=== PATIENT | female | born 1955 | race Caucasian/White ===

== ENCOUNTER 2016-08-02 22:51 | Emergency (ER) | payer SELFPAY ==
[~2016-08-02] VITALS: Ht 134.6 cm; Wt 59.5 kg
[2016-08-02 23:06] VITALS: BP 170/98; PULSE 88; RESP 14; O2SAT 96
[2016-08-02] MEDS ORDERED: GOLI50PE SQ (23:13)
[2016-08-02] MEDS ORDERED: ALPR0.25 PO (23:13)
[2016-08-02] MEDS ORDERED: [UNRECOGNIZED DRUG - CODE] PO (23:13)
[2016-08-02] MEDS ORDERED: METH25VI9 IM (23:13)
[2016-08-03 00:37] VITALS: BP 155/81; PULSE 85; RESP 16; O2SAT 99
--- NOTE | 2016-08-03 01:06 | ED.REPORT ---
HPI-Sore Throat ONLY HPI/PE done August 03, 2016 ED Provider: Dr. Earl Briones D.O. A 61 year old female with a medical history including RA and uveitis on methotrexate presents to the ED with a sore throat onset yesterday. Associated symptoms include headache, generalized myalgias, abdominal pain, and diarrhea. The patient denies cough or other symptoms. Her daughter and grandson are also ill with similar symptoms and were diagnosed with strep throat today. Nursing Notes Stated Complaint: SORE THROAT,BODY ACHES,EAR ACHE Chief Complaint: General Complaint Nursing Notes Reviewed: Yes Allergies: Uncoded Allergies: DARVOCET (Allergy, Intermediate, facial swelling, 08/02/16) Scheduled PRN Alprazolam (Xanax) 0.25 Mg Tablet 0.25 MG PO TID PRN PRN For Anxiety Miscellaneous Medications Golimumab (Simponi) 50 Mg/0.5 Ml Pen.injctr 50 MG SQ Methotrexate Sodium (Methotrexate) 50 Mg/2 Ml Vial 25 MG IM Vitamin A Palmitate/Vitamin D2 (Vitamins A & D Tablet) 1 Each Tablet 1 EACH PO General Time Seen by MD: 01:06 Chief Complaint Sore throat Hx Obtained From: Patient Arrived By: Walk-in Onset Occurred: Yesterday Context of Onset: Exposure, strep Symptom Duration: Since onset Location: : Tonsil left: Tonsil right Quality: Painful Severity: Current: Moderate Severity: Maximum: Moderate Pertinent Negative: Relieved by nothing Context: Immunization Status General: Unknown Recent Healthcare: No recent doctor visit Past Medical History Past Medical History RA Uveitis on methotrexate MRSA Past Surgical History Nasal polypectomy Smoking History Unknown if Ever Smoker Social History Other Social History: Good social support Ambulatory Status Independent Review of Systems Constitutional: Denies: Fever Ears / Nose / Throat: Reports: Sore throat Respiratory: Denies: Non-productive cough, Shortness of breath GI: Reports: Abdominal pain, Diarrhea, Denies: Vomiting Neurologic: Reports: Headache Complete sys rev & neg: except as marked. Musculoskeletal: Reports: Myalgia (Generalized) Physical Exam Initial Vital Signs Vital Signs (First) Date Time Temp Pulse Resp B/P Pulse Ox O2 Delivery O2 Flow Rate FiO2 08/02/16 23:06 37.3 88 14 170/98 96 Room Air Head / Eyes: Atraumatic, Normocephalic Respiratory: Breath sounds normal, Clear to auscultation, No respiratory distress Cardiovascular: Regular rate & rhythm, Heart sounds normal Abdomen / GI: Soft, Non-tender Skin: Warm, Dry, No cyanosis Neurologic: Alert, Oriented, Nonfocal Psychiatric: Mood/affect normal, Behavior normal, Normal thought content General/Constitutional: Awake, Alert, No acute distress ENT: Airway patent, Tympanic membs NL, Ext aud canal NL Pharynx / Tonsils / Uvula: Positive: Pharyngeal erythema Neck: Supple, Full range of motion Interpretation & Diagnostics Lab Results Interpretation Result Diagram: 08/03/16 0125 08/03/16 0125 Test 08/03/16 00:47 08/03/16 01:25 Urine Color Yellow (YELLOW) Urine Appearance Clear (CLEAR,HAZY) Urine pH 6.0 (5.0-8.0) Urine Specific [place] 1.007 (1.003-1.035) Urine Protein Negativemg/dL (NEG,TRACE) Urine Glucose (UA) Negativemg/dL (NEGATIVE) Urine Ketones Negativemg/dL (NEGATIVE) Urine Occult Blood Negative (NEGATIVE) Urine Nitrite Negative (NEGATIVE) Urine Bilirubin Negative (NEGATIVE) Urine Urobilinogen Normalmg/dL (NORMAL) Urine Leukocyte Esterase Small (NEGATIVE) Urine RBC 0-2/hpf (0-2) Urine WBC 6-10/hpf (0-5) Urine Epithelial Cells Many/hpf (NONE-MOD) Urine Crystals None seen (NONE SEEN) Urine Bacteria None/hpf (NONE-FEW) Urine Hyaline Casts None/lpf (NONE) Urine Granular Casts None seen (NONE SEEN) Urine Waxy Casts None seen (NONE SEEN) Urine Red Blood Cell Casts None seen (NONE SEEN) Urine White Blood Cell Casts None seen (NONE SEEN) Urine Mucus None seen (None Seen) Urine Trichomonas None seen (NONE SEEN) Urine Yeast None (NONE SEEN) Urine Culture Reflexed Indicated White Blood Count 6.0th/mm3 (3.8-10.1) Red Blood Count 3.37mil/mm3 (3.90-5.20) Hemoglobin 11.6g/dL (12.0-15.6) Hematocrit 35.5% (35.0-46.0) Mean Corpuscular Volume 105.3fL (81-100) Mean Corpuscular Hemoglobin 34.4pg (27.0-35.0) Mean Corpuscular Hemoglobin Concent 32.7% (32.0-37.0) Red Cell Distribution Width 13.4% (12.3-15.4) Platelet Count 290bil/L (150-400) Neutrophils (%) (Auto) 49.5% (40-74) Lymphocytes (%) (Auto) 30.2% (14-46) Monocytes (%) (Auto) 17.4% (4-12) Eosinophils (%) (Auto) 1.7% (0-5) Basophils (%) (Auto) 1.0% (0-3) Sodium Level 137mEq/L (134-144) Potassium Level 3.4mEq/L (3.5-5.2) Chloride Level 97mEq/L (97-108) Carbon Dioxide Level 22mmol/L (18-29) Blood Urea Nitrogen 12mg/dL (6-24) Creatinine 0.62mg/dL (0.57-1.00) Estimat Glomerular Filtration Rate 141mL/min (>59) Glucose Level 126mg/dL (60-99) Calcium Level 9.6mg/dL (8.5-10.1) Total Bilirubin 0.2mg/dL (0.0-1.2) Aspartate Amino Transf (AST/SGOT) 30U/L (0-50) Alanine Aminotransferase (ALT/SGPT) 33U/L (0-32) Alkaline Phosphatase 70U/L (25-165) Total Protein 8.8g/dL (6.4-8.4) Albumin 5.1g/dL (3.4-5.0) Hold Hall Top Tube Received (Received) Re-Eval/Medical Decision Re-Evaluation/Progress : Time of Eval: 02:10 Patient Status: Condition improved Re-Evaluation/Progress Note: Discussed with patient lab results, diagnosis, and plan for discharge. Follow-up and return to the ER instructions given. Patient agrees with plan for care and all questions were addressed. Counseled Regarding: Diagnosis, Lab results, Need for follow-up, When/why to return to ED Discharge & Departure Shift Change Sign-Out Response to Therapy: Improved Primary Impression: Pharyngitis, acute Pharyngitis/tonsillitis etiology: streptococcus Qualified Code: J02.0 - Streptococcal pharyngitis Disposition: Home Discharge Condition All VS Reviewed: Yes Condition: Improved Patient Instructions: Pharyngitis (ED) Additional Instructions: Thank you for entrusting us with your care. Your lab work was reassuring for any serious illness. Please take Amoxicillin three times daily for ten days, as prescribed. 1-2 Ohl[place] every six hours as needed for pain. Do not drink alcohol, drive, or consume acetaminophen while taking Ohlman. Call your primary care provider tomorrow for a follow-up appointment next week. Return to the ER with any new or worsening symptoms. Referrals: [facility]OPCP (PCP) [facility] Doroteo Attestation Portions of this note were transcribed by Melia Anguiano. I, Dr. Briones, personally performed the history, physical exam, and medical decision-making; I reviewed and confirmed the accuracy of the information in the transcribed note. Signed by: Doroteo Crawford, 08/03/2016, 03:10 copies to: [facility] Earl Briones DO August 03, 2016 01:06 MELIA ANGUIANO August 03, 2016 01:14
[2016-08-03] MEDS ORDERED: HYDROcodone-APAP 5-325 mg Tablet PO ONE (01:15)
[2016-08-03 01:26] LABS: APPEARANCE,URINE CLEAR (CLEAR,HAZY); COLOR,URINE YELLOW (YELLOW); OCCULT BLOOD,URINE NEGATIVE (NEGATIVE); UROBILINOGEN,URINE NORMAL (NORMAL)
[2016-08-03 01:35] LABS: EOSINOPHILS % (AUTO) 1.7 % (0-5); MONOCYTES % (AUTO) 17.4 % (4-12); Mean Corpuscular Hemoglobin 34.4 pg (27.0-35.0); Mean Corpuscular Volume 105.3 fL (81-100); NEUTROPHILS % (AUTO) 49.5 % (40-74); Platelet Count 290 bil/L (150-400)
[2016-08-03] MEDS ORDERED: _HYDROcodone/APAP 5-325 mg Tablet PO PRN (01:40)
[2016-08-03 02:37] VITALS: PULSE 80; RESP 16; O2SAT 100
== END 2016-08-03 02:38 | disposition home or self-care (01) ==
LOC: SED 22:51
DX: J02.0 Streptococcal pharyngitis (principal); R51 Headache; M79.1 Myalgia; R10.9 Unspecified abdominal pain; R19.7 Diarrhea, unspecified; M06.9 Rheumatoid arthritis, unspecified; H20.9 Unspecified iridocyclitis; Z86.14 Personal history of Methicillin resistant Staphylococcus aureus infection